=== PATIENT | female | born 1955 | race Caucasian/White ===

== ENCOUNTER 2017-10-06 23:19 | Observation (INO) | payer BC ==
[2017-10-06] MEDS ORDERED: NA CHLORIDE 0.9% 1,000 ML ONE (23:39)
[2017-10-06 23:56] LABS: Protime INR 0.95
[2017-10-07 00:08] LABS: ALT/SGPT 38 U/L (12-78); AST/SGOT 26 U/L (15-37); Albumin 3.3 g/dL (3.4-5.0); Alkaline Phosphatase 87 U/L (45-117); BUN Blood Urea Nitrogen 12 mg/dL (7-18); Bicarbonate 27 mmol/L (21-32); Bilirubin Direct < 0.1 mg/dL (0-0.2); Bilirubin Total 0.4 mg/dL (0.2-1.0); Glucose Level 115 mg/dL (74-106); Magnesium 2.4 mg/dL (1.8-2.4); Potassium 3.4 mmol/L (3.5-5.1); Protein, Total 6.7 g/dL (6.4-8.2); Sodium Level 142 mmol/L (136-145)
[2017-10-07 00:11] LABS: Absolute Lymphocytes (CBC) 3.4 K/uL (0.7-4.9); Absolute Monocytes 0.5 K/uL (0.1-1.3); Absolute Neutrophil 3.9 K/uL (1.8-8.0); Basophils % 0.8 % (0-1.3); Hematocrit 42.8 % (36.0-45.0); Lymphocytes % 42.4 % (15.3-44.8); MCH 30.2 pg (27.0-35.0); MCV 89.8 fL (80-100); MPV 7.3 fL (7.6-11.3); Monocytes % 6.2 % (3.3-12.3); RBC Red Blood Cell Count 4.76 M/uL (3.86-4.86)
[2017-10-07] MEDS ORDERED: ONDANSETRON 4 MG/2 ML VIAL IV PRN (01:59)
[2017-10-07] MEDS ORDERED: ACETAMINOPHEN 500 MG TAB PO PRN (01:59)
--- NOTE | 2017-10-07 01:59 | EDPHYS ---
Physician Documentation [facility] Name: Carmen Mandel Age: 62 yrs Sex: Female : 1955 Arrival Date: 10/06/2017 Time: 23:21 Bed 3 Private MD: ED Physician Todd Stubbs HPI: 10/07 01:53 This 62 yrs old Female presents to ER via EMS with complaints of syncope,near gs syncope. 01:53 The patient has experienced syncope, collapsed. Onset: The symptoms/episode gs began/occurred acutely, just prior to arrival. Duration: This was a single episode. Context: occurred at home, occurred while the patient was went to , the walked outside to smoke got light headed briefly passed out. Context: occurred while the patient was. Associated injury: The patient did not suffer any apparent associated injury. Associated signs and symptoms: Pertinent negatives: chest pain. Current symptoms: Currently, the patient is not experiencing any symptoms. The patient has experienced a previous episode. Historical: - Allergies: 10/06 23:27 Neurontin; lp1 - Home Meds: 23:27 mirtazapine 30 mg Oral tab nightly [Active]; Pravachol 40 mg Oral tab nightly [Active]; lp1 [place] Thyroid 90 mg Oral tab daily [Active]; citalopram 40 mg tab 1 tab once daily [Active]; - PMHx: 23:27 Hyperlipidemia; Depression; lp1 - PSHx: 23:27 ; Appendectomy; Back surgery; lp1 - Immunization history:: Adult Immunizations up to date. - Social history:: Smoking status: Patient uses tobacco products, smokes one pack cigarettes per day. - Ebola Screening: : No symptoms or risks identified at this time. ROS: 10/07 01:53 All other systems are negative. gs Exam: 01:53 Head/Face: Normocephalic, atraumatic. Eyes: Pupils equal round and reactive to light, gs extra-ocular motions intact. Lids and lashes normal. Conjunctiva and sclera are non-icteric and not injected. Cornea within normal limits. Periorbital areas with no swelling, redness, or edema. 01:53 ENT: Nares patent. No nasal discharge, no septal abnormalities noted. Tympanic membranes are normal and external auditory canals are clear. Oropharynx with no redness, swelling, or masses, exudates, or evidence of obstruction, uvula midline. Mucous membranes moist. Neck: Trachea midline, no thyromegaly or masses palpated, and no cervical lymphadenopathy. Supple, full range of motion without nuchal rigidity, or vertebral point tenderness. No Meningismus. Chest/axilla: Normal chest wall appearance and motion. Nontender with no deformity. No lesions are appreciated. Cardiovascular: Regular rate and rhythm with a normal S1 and S2. No gallops, murmurs, or rubs. Normal PMI, no JVD. No pulse deficits. Respiratory: Lungs have equal breath sounds bilaterally, clear to auscultation and percussion. No rales, rhonchi or wheezes noted. No increased work of breathing, no retractions or nasal flaring. Abdomen/GI: Soft, non-tender, with normal bowel sounds. No distension or tympany. No guarding or rebound. No evidence of tenderness throughout. Back: No spinal tenderness. No costovertebral tenderness. Full range of motion. Skin: Warm, dry with normal turgor. Normal color with no rashes, no lesions, and no evidence of cellulitis. MS/ Extremity: Pulses equal, no cyanosis. Neurovascular intact. Full, normal range of motion. Neuro: Awake and alert, GCS 15, oriented to person, place, time, and situation. Cranial nerves II-XII grossly intact. Motor strength 5/5 in all extremities. Sensory grossly intact. Cerebellar exam normal. Normal gait. 01:53 ECG was reviewed by the Attending Physician. Vital Signs: 10/06 23:23 BP 105 / 62; Pulse 66; Resp 16; Temp 97.4; Pulse Ox 97% on R/A; Weight 62.14 kg; Height lp1 5 ft. 5 in. (165.10 cm); 23:41 BP 100 / 57; Pulse 65; Resp 18; Pulse Ox 100% ; Pain 0/10; mg2 10/07 00:27 BP 115 / 67; Pulse 67; Resp 18; Pulse Ox 98% on R/A; mg2 01:15 BP 103 / 67; Pulse 66; Resp 18; Pulse Ox 99% on R/A; Pain 0/10; mg2 10/06 23:23 Body Mass Index 22.80 (62.14 kg, 165.10 cm) lp1 MDM: 10/06 23:31 Patient medically screened. gs 06/22 01:53 Differential Diagnosis: cardiac arrhythmia, idiopathic syncope, vasovagal episode. Differential Diagnosis: pseudo seizure. Data reviewed: vital signs, nurses notes. Response to treatment: the patient's symptoms have markedly improved after treatment. 10/06 23:32 Order name: Basic Metabolic Panel; Complete Time: 01:24 10/06 23:32 Order name: CBC with Diff; Complete Time: 01:24 10/06 23:32 Order name: LFT's; Complete Time: 01:24 10/06 23:32 Order name: Magnesium; Complete Time: 01:24 10/06 23:32 Order name: PT-INR; Complete Time: 01:24 10/06 23:32 Order name: Troponin (emerg Dept Use Only); Complete Time: 01:24 10/07 01:30 Order name: Urine Microscopic Only mg2 10/07 01:32 Order name: Urine Dipstick--Ancillary (enter results) rg2 10/07 02:02 Order name: Comprehensive Metabolic Panel [facility] 10/07 02:02 Order name: Comprehensive Metabolic Panel [facility] 10/07 02:02 Order name: Troponin I [facility] 10/07 02:03 Order name: Troponin I [facility] 10/07 02:03 Order name: CBC with Automated Diff [facility] 10/07 02:03 Order name: CBC with Automated Diff [facility] 10/06 23:32 Order name: XRAY Chest (1 view) 10/06 23:32 Order name: EKG; Complete Time: 23:33 10/06 23:32 Order name: Cardiac monitoring; Complete Time: 23:35 10/06 23:32 Order name: EKG - Nurse/Tech; Complete Time: 23:35 10/06 23:32 Order name: IV Saline Lock; Complete Time: 23:35 10/06 23:32 Order name: Labs collected and sent; Complete Time: 23:35 10/06 23:32 Order name: O2 Per Protocol; Complete Time: 23:35 10/06 23:32 Order name: O2 Sat Monitoring; Complete Time: 23:35 10/06 23:32 Order name: Urine Dipstick-Ancillary (obtain specimen); Complete Time: 01:30 10/07 02:02 Order name: CONS Pharmacy Consult [facility] 10/07 02:03 Order name: NPO [facility] 10/07 02:03 Order name: Echo with Doppler [facility] 10/07 02:03 Order name: EKG Electrocardiogram [facility] 10/07 02:03 Order name: EKG Electrocardiogram [facility] 10/07 02:03 Order name: Carotid Artery Bilateral EDMS EC:53 Rate is 63 beats/min. Rhythm is regular. MN interval is normal. QRS interval is normal. gs T waves are Inverted in leads V1, V2. No ST changes noted. Clinical impression: NSR w/ Non-specific ST/T Changes and Abnormal EKG without significant change. Interpreted by me. Administered Medications: 10/06 23:39 Drug: NS 0.9% 1000 ml Route: IV; Rate: 1 bolus; Site: right hand; mg2 10/07 01:30 Follow up: Response: No adverse reaction; IV Status: Completed infusion mg2 Disposition: 10/07/17 01:58 Hospitalization ordered by Ronald Zuñiga for Observation. Preliminary diagnosis is Syncope and collapse. - Bed requested for Telemetry/MedSurg (observation). - Status is Observation. mg2 - Condition is Stable. - Problem is new. - Symptoms have improved. UTI on Admission? No Signatures: Dispatcher [employer] EDLA Meg Julien RN RN Delia Zheng RN RN lp1 Todd Stubbs MD MD Kwame Howell RN RN mg2 Corrections: (The following items were deleted from the chart) 02:07 01:58 Hospitalization Ordered by Ronald Zuñiga MD for Observation. Preliminary mw diagnosis is Syncope and collapse. Bed requested for Telemetry/MedSurg (observation). Status is Observation. Condition is Stable. Problem is new. Symptoms have improved. UTI on Admission? No. gs 02:46 02:07 10/07/2017 01:58 Hospitalization Ordered by Ronald Zuñiga MD for Observation. mg2 Preliminary diagnosis is Syncope and collapse. Bed requested for Telemetry/MedSurg (observation). Status is Observation. Condition is Stable. Problem is new. Symptoms have improved. UTI on Admission? No. mw
--- NOTE | 2017-10-07 01:59 | ER ---
Nurse's Notes [facility] Name: Carmen Mandel Age: 62 yrs Sex: Female : 1955 Arrival Date: 10/06/2017 Time: 23:21 Bed 3 Private MD: Diagnosis: Syncope and collapse Presentation: 10/06 23:21 Presenting complaint: EMS states: Patient was sitting down and began to feel dizzy, lp1 light headed, states she could not stand up; EMS on scene states BP of 60/40, put in Trendelenburg position with some improvement; On arrival to ED, patient states some relief but continues to feel dizzy. Transition of care: patient was not received from another setting of care. Onset of symptoms was October 06, 2017 at 22:30. Risk Assessment: Do you want to hurt yourself or someone else? Patient reports no desire to harm self or others. Initial Sepsis Screen: Does the patient meet any 2 criteria? No. Patient's initial sepsis screen is negative. Does the patient have a suspected source of infection? No. Patient's initial sepsis screen is negative. Care prior to arrival: Glucose check: 108. 23:21 Method Of Arrival: EMS: [facility] lp1 23:21 Acuity: CHET 2 lp1 Historical: - Allergies: 23:27 Neurontin; lp1 - Home Meds: 23:27 mirtazapine 30 mg Oral tab nightly [Active]; Pravachol 40 mg Oral tab nightly [Active]; lp1 [place] Thyroid 90 mg Oral tab daily [Active]; citalopram 40 mg tab 1 tab once daily [Active]; - PMHx: 23:27 Hyperlipidemia; Depression; lp1 - PSHx: 23:27 ; Appendectomy; Back surgery; lp1 - Immunization history:: Adult Immunizations up to date. - Social history:: Smoking status: Patient uses tobacco products, smokes one pack cigarettes per day. - Ebola Screening: : No symptoms or risks identified at this time. Screenin:24 Abuse screen: Denies threats or abuse. Denies injuries from another. Nutritional lp1 screening: No deficits noted. Tuberculosis screening: No symptoms or risk factors identified. 10/07 02:24 Fall Risk Fall in past 12 months (25 points). IV access (20 points). Gait- Weak (10 mg2 pts.). Assessment: 10/06 23:39 General: Appears in no apparent distress. comfortable, Behavior is calm, cooperative. mg2 Pain: Denies pain. Neuro: Level of Consciousness is awake, alert, obeys commands, Oriented to person, place, time, situation, Reports dizziness, since this evening and she almost passed out in the toilet weakness in generalized. Cardiovascular: Capillary refill < 3 seconds Patient's skin is warm and dry. Rhythm is sinus rhythm. Respiratory: Airway is patent Respiratory effort is even, unlabored, Respiratory pattern is regular, symmetrical. GI: No signs and/or symptoms were reported involving the gastrointestinal system. : No signs and/or symptoms were reported regarding the genitourinary system. EENT: No signs and/or symptoms were reported regarding the EENT system. Derm: Skin is intact, Skin is pink, warm \T\ dry. normal. Musculoskeletal: Circulation, motion, and sensation intact. 10/07 01:22 Reassessment: Patient appears in no apparent distress at this time. Patient and/or mg2 family updated on plan of care and expected duration. Pain level reassessed. Patient is alert, oriented x 3, equal unlabored respirations, skin warm/dry/pink. 02:23 Reassessment: BRIDGETT Velazquez is still with the patient right now. she will call to [facility] [place] the report. Vital Signs: 10/06 23:23 BP 105 / 62; Pulse 66; Resp 16; Temp 97.4; Pulse Ox 97% on R/A; Weight 62.14 kg; Height lp1 5 ft. 5 in. (165.10 cm); 23:41 BP 100 / 57; Pulse 65; Resp 18; Pulse Ox 100% ; Pain 0/10; mg2 10/07 00:27 BP 115 / 67; Pulse 67; Resp 18; Pulse Ox 98% on R/A; mg2 01:15 BP 103 / 67; Pulse 66; Resp 18; Pulse Ox 99% on R/A; Pain 0/10; mg2 10/06 23:23 Body Mass Index 22.80 (62.14 kg, 165.10 cm) lp1 ED Course: 10/06 23:21 Patient arrived in ED. lp1 23:21 Todd Stubbs MD is Attending Physician. 23:23 Triage completed. lp1 23:24 Initial lab(s) drawn, by me, EKG done, by ED staff, reviewed by Todd Stubbs MD. aa1 Inserted saline lock: 22 gauge in right hand, using aseptic technique. Blood collected. 23:27 Patient has correct armband on for positive identification. Placed in gown. Bed in low lp1 position. Side rails up X2. freelance interpreter/translator on. Pulse ox on. NIBP on. 23:27 Arm band placed on left wrist. lp1 23:35 Kwame Howell RN is Primary Nurse. mg2 23:44 XRAY Chest (1 view) In Process Unspecified. EDMS 10/07 01:58 Ronald Zuñiga MD is Hospitalizing Provider. gs 02:24 No provider procedures requiring assistance completed. Patient admitted, IV remains in mg2 place. Administered Medications: 10/06 23:39 Drug: NS 0.9% 1000 ml Route: IV; Rate: 1 bolus; Site: right hand; mg2 10/07 01:30 Follow up: Response: No adverse reaction; IV Status: Completed infusion mg2 Outcome: 01:58 Decision to Hospitalize by Provider. gs 02:34 Admitted to Tele accompanied by tech, via wheelchair, room 408, with chart, Report mg2 called to BRIDGETT Velazquez 02:34 Condition: stable 02:34 Instructed on the need for admit, Demonstrated understanding of instructions. 02:46 Patient left the ED. mg2 Signatures: Dispatcher [employer] EDMS Jessica Escobedo RN RN aa1 Delia Zheng RN RN lp1 Todd Stubbs MD MD Kwame Howell RN RN mg2
[2017-10-07 02:03] LABS: Urine Blood TRACE (NEG); Urine Glucose NEGATIVE (NEG); Urine Protein NEGATIVE (NEG); Urine pH 6.5 (5.0-7.0)
[2017-10-07 02:27] LABS: Urine Bacteria <20 /HPF (<20); Urine Culture Reflex Order NOT NEEDED
[2017-10-07] MEDS: NA CHLORIDE 0.9% 1,000 ML IV SCH ×2 (03:16→12:00)
--- NOTE | 2017-10-07 06:12 | P.HP ---
Certification for Inpatient Patient admitted to: Observation With expected LOS: <2 Midnights Patient will require the following post-hospital care: None Practitioner: I am a practitioner with admitting privileges, knowledge of patient current condition, hospital course, and medical plan of care. Services: Services provided to patient in accordance with Admission requirements found in Title 42 Section 412.3 of the Code of Federal Regulations Patient History Date of Service: 10/07/17 Reason for admission: Near syncope History of Present Illness: Patient is a 62-year-old female came to the hospital with a near syncopal event. Patient states that she started having ringing in her ears and was not able to maintain her balance. She was not having any vertigo. She was about to fall but she was able to lay down. She is to have these events many years ago but they subsided. They never diagnosed the etiology of her near syncopal events. She has headaches and states that she notices a ringing in her ears. Everything goes dark and if she does not lay down she will collapse. In the emergency room she had a initial labs which did not reveal any significant abnormalities. She will be admitted to the hospital for further workup for her syncopal event. Allergies gabapentin [From Neurontin] Allergy (Mild, Verified 10/07/17 02:19) Rash Home Medications: Citalopram Hydrobromide [Citalopram HBr] 40 mg PO DAILY 10/07/17 Mirtazapine [Remeron] 30 mg PO BEDTIME 10/07/17 Pravastatin Sodium 40 mg PO BEDTIME 10/07/17 Thyroid,Pork [[place] Thyroid] 90 mg PO DAILY 10/07/17 - Past Medical/Surgical History Has patient received pneumonia vaccine in the past: No Diabetic: No -: Hyperlipedemia -: Depression -: Appendectomy -: C Section -: Back Surgery x 3 -: Breast Implants x 2 - Family History Father Medical History: Diabetes Mother Medical History: Heart disease Sister Medical History: Heart disease Brother Medical History: Heart disease - Social History Smoking Status: Current every day smoker Alcohol use: No CD- Drugs: No Place of Residence: Home Review of Systems 10-point ROS is otherwise unremarkable Physical Examination - Vital Signs Temperature: 97.6 F Blood Pressure: 113/62 Pulse: 65 Respirations: 14 Pulse Ox (%): 94 - Physical Exam General: Alert, In no apparent distress, Oriented x3 HEENT: Atraumatic, PERRLA, Mucous membr. moist/pink, EOMI, Sclerae nonicteric Neck: Supple, 2+ carotid pulse no bruit, No LAD, Without JVD or thyroid abnormality Respiratory: Clear to auscultation bilaterally, Normal air movement Cardiovascular: Regular rate/rhythm, Normal S1 S2, No murmurs Gastrointestinal: Normal bowel sounds, Soft and benign, Non-distended, No tenderness Musculoskeletal: No clubbing, No swelling, No tenderness Integumentary: No rashes Neurological: Normal gait, Normal speech, Normal strength at 5/5 x4 extr, Normal tone, Sensation intact, Cranial nerves 3-12 intact, Normal affect Lymphatics: No axilla or inguinal lymphadenopathy - Studies Laboratory Data (last 24 hrs) 10/06/17 23:22: PT 11.2, INR 0.95 10/06/17 23:22: WBC 7.9, Hgb 14.4, Hct 42.8, Plt Count 307 10/06/17 23:22: Sodium 142, Potassium 3.4 L, BUN 12, Creatinine 0.90, Glucose 115 H, Magnesium 2.4, Total Bilirubin 0.4, AST 26, ALT 38, Alkaline Phosphatase 87 Assessment & Plan - Problems (Diagnosis) (1) Near syncope Current Visit: Yes Status: Acute (2) Tinnitus Current Visit: Yes Status: Acute (3) Persistent headaches Current Visit: Yes Status: Acute (4) Previous back surgery Current Visit: Yes Status: Acute - Plan Plan: 1. Gentle hydration 2. Monitor on telemetry 3. Syncope workup with echocardiogram, carotid Doppler, and because of all the neurologic symptoms will also get an MRI of the brain. No need for any consultation at this time and if her workup is negative she should be stable for discharge home. There is any abnormalities or arrhythmias then we may need to Consult appropriate physicians. At this time will work her up and arrange for outpatient follow-up with her primary care provider if her workup is negative. - Advance Directives Does patient have a Living Will: No Does patient have a Durable POA for Healthcare: No - Code Status/Comfort Care Code Status Assessed: Yes Code Status: Full Code Critical Care: No Time Spent Managing PTS Care (In Minutes): 50
[2017-10-07 08:14] LABS: Thyroid Stimulating Hormone 0.01 uIU/mL (0.36-3.74)
--- NOTE | 2017-10-07 08:56 | RAD REPORT ---
EXAM DESCRIPTION: Kirsten Single View10/06/2017 11:46 pm CLINICAL HISTORY: Shortness of breath COMPARISON: 2013 FINDINGS: The lungs appear clear of acute infiltrate. The heart is normal size IMPRESSION: No acute abnormalities displayed
[2017-10-07] MEDS ORDERED: HOME MED 1 EA UNK (Thyroid,Pork [Armour Thyroid] 90 MG) PO SCH (09:00)
[2017-10-07] MEDS ORDERED: CITALOPRAM 10 MG TABLET PO SCH (09:00)
[2017-10-07] MEDS ORDERED: NICOTINE 21 MG/PAT TD SCH (09:00)
--- NOTE | 2017-10-07 10:43 | RAD REPORT ---
EXAM DESCRIPTION: MRI - Stroke Protocol - 10/07/2017 10:28 am CLINICAL HISTORY: near syncope. CVA.Headache. COMPARISON: Carotid Artery Bilateral dated 10/07/2017 TECHNIQUE: MRI of brain with diffusion-weighted imaging with contrast 3D [id number] non contrast MR angiography of the [place]. 2D [id number] post contrast MR angiography of the neck vessels. Approximately 20 cc of Magne[place] contrast was administered during the study. FINDINGS: No intracranial hemorrhage, hydrocephalus or extra-axial fluid collection is seen. Fall a few punctate T2/FLAIR hyperintensities in the periventricular region are nonspecific.No areas of brai n edema or midline shift. No intracranial mass lesion. Diffusion-weighted imaging is negative for acute CVA. The midline structures are normally formed. Post-contrast imaging through the brain shows no abnormal enhancement to suggest tumor or infection. Moderate fluid in the right mastoid air cell noted. MR angiography of the [place] shows no aneurysm, flow-limiting stenosis or vascular malforma tion. MR angiography of the neck vessels shows mild narrowing of the left carotid bulb estimated at less th an 50%. Antegrade flow is seen in both vertebral arteries. IMPRESSION: Negative for acute CVA or other acute intracranial process. Moderate right mastoid fluid may indicate mastoiditis.
--- NOTE | 2017-10-07 10:57 | RAD REPORT ---
EXAM DESCRIPTION: VASCarotid Artery Bilateral10/07/2017 8:59 am CLINICAL HISTORY: Syncope COMPARISON: None FINDINGS: The velocity of the right internal carotid artery equals 120 cm/sec. The right ICA/CCA rat io 1.5 The velocity of the left internal carotid artery equals 120 cm/sec. The left ICA/CCA ratio 1.4 Plaque is not visualized within the carotid arteries. The vertebral arteries demonstrate antegrade flow IMPRESSION: Unremarkable exam
--- NOTE | 2017-10-07 11:14 | EKG ---
Test Date: 2017-10-06 Test Time: 23:23:57 X Ray Physician: MEASUREMENT RESULTS: Intervals: Rate: 63 CA: 180 QRSD: 96 QT: 436 QTc: 446 [place]: P: 67 CA: 180 QRS: 14 T: 81 INTERPRETIVE STATEMENTS: Normal sinus rhythm Incomplete right bundle branch block Nonspecific T wave abnormality Abnormal ECG Compared to ECG 01/16/2014 11:38:03 Incomplete right bundle-branch block now present T-wave abnormality now present Electronically Signed On 10-07-17 11:13:38 CDT by Ty Hennessy
--- NOTE | 2017-10-07 11:53 | P.DS ---
Admission Date: 10/07/17 Discharge Date: 10/07/17 Primary Care Provider: Ray Montgomery NP Disposition: ROUTINE DISCHARGE Discharge Condition: GOOD Reason for Admission: Near syncope Procedures: MRI: FINDINGS: No intracranial hemorrhage, hydrocephalus or extra-axial fluid collection is seen. Fall a few punctate T2/FLAIR hyperintensities in the periventricular region are nonspecific.No areas of brain edema or midline shift. No intracranial mass lesion. Diffusion-weighted imaging is negative for acute CVA. The midline structures are normally formed. Post-contrast imaging through the brain shows no abnormal enhancement to suggest tumor or infection. Moderate fluid in the right mastoid air cell noted. MR angiography of the [place] shows no aneurysm, flow-limiting stenosis or vascular malformation. MR angiography of the neck vessels shows mild narrowing of the left carotid bulb estimated at less than 50%. Antegrade flow is seen in both vertebral arteries. IMPRESSION: Negative for acute CVA or other acute intracranial process. Carotid Doppler: Negative for stenosis. - Problems (1) Mastoiditis Current Visit: Yes Status: Acute Qualifiers: Laterality: right Qualified Code(s): H70.91 - Unspecified mastoiditis, right ear (2) Hypothyroidism Current Visit: Yes Status: Chronic Qualifiers: Hypothyroidism type: unspecified Qualified Code(s): E03.9 - Hypothyroidism , unspecified (3) Near syncope Onset Date: 10/07/17 Current Visit: Yes Status: Acute (4) Persistent headaches Onset Date: 10/07/17 Current Visit: Yes Status: Chronic (5) Tinnitus Onset Date: 10/07/17 Current Visit: Yes Status: Chronic (6) Hypokalemia Current Visit: Yes Status: Acute (7) Hyperlipidemia Current Visit: Yes Status: Chronic Qualifiers: Hyperlipidemia type: unspecified Qualified Code(s): E78.5 - Hyperlipidemia , unspecified (8) Depression Current Visit: Yes Status: Chronic Qualifiers: Depression Type: unspecified Qualified Code(s): F32.9 - Major depressive disorder, single episode, unspecified (9) Seasonal allergies Current Visit: Yes Status: Chronic (10) Tobacco abuse Current Visit: Yes Status: Chronic Brief History of Present Illness: 62-year-old female presented emergency room with dizziness and near syncopal episode. Patient reports chronic headaches. Patient had some dizziness to the right side. Patient came to the ER for further evaluation. Initial CT scan unremarkable. The patient was admitted for further evaluation Hospital Course: The patient did well during the course of her stay. Dizziness resolved. Patient had no further near syncopal episode. MRI showed no acute stroke. Right mastoiditis was noted. Carotid Doppler was negative. At discharge patient has been started on Augmentin 875 mg 1 pill twice daily for 7 days. Flonase 1 spray per nostril twice daily also has been added. If her symptoms persist recommendation is for the patient follow up with ENT as an outpatient to further evaluate and monitor. Patient has tobacco abuse. Tobacco cessation recommended. Patient has hyperlipidemia. Patient may continue with pravastatin 40 mg 1 pill once daily. Patient has depression. She will continue with her medications including Celexa 40 mg daily and Remeron 20 mg at night. Patient has hypothyroidism. Patient takes [place] thyroid 90 mg daily. Recommendation is for the patient to follow up with her PCP to further evaluate. Medication may need to be decreased. Repeat lab done today including tsh, free T4, free T3, total T4 and T3. Lab will need to be followed up by her PCP. Patient may require endocrinology evaluation as an outpatient to further address and manage. Vital Signs/Physical Exam: Temp Pulse Resp BP Pulse Ox 96.9 F 67 17 100/42 L 94 10/07/17 08:00 10/07/17 08:00 10/07/17 08:00 10/07/17 08:00 10/07/17 08:00 General: Alert, In no apparent distress, Oriented x3, Cooperative HEENT: Atraumatic, Other (Nasal congestion noted.) Neck: Supple Respiratory: Clear to auscultation bilaterally, Normal air movement Cardiovascular: Normal pulses, Regular rate/rhythm Gastrointestinal: Normal bowel sounds, Soft and benign, Non-distended, No tenderness, No masses, No rebound, No guarding Musculoskeletal: No erythema, No tenderness, No warmth Integumentary: No tenderness/swelling, No erythema, No warmth, No cyanosis Neurological: Normal speech, Normal strength at 5/5 x4 extr, Normal tone, Normal affect Laboratory Data at Discharge: WBC 7.9 K/uL (4.3-10.9) 10/06/17 23:22 Hgb 14.4 g/dL (12.0-15.0) 10/06/17 23:22 Hct 42.8 % (36.0-45.0) 10/06/17 23:22 Plt Count 307 K/uL (152-406) 10/06/17 23:22 PT 11.2 SECONDS (9.5-12.5) 10/06/17 23:22 INR 0.95 10/06/17 23:22 Sodium 142 mmol/L (136-145) 10/06/17 23:22 Potassium 3.4 mmol/L (3.5-5.1) L 10/06/17 23:22 BUN 12 mg/dL (7-18) 10/06/17 23:22 Creatinine 0.90 mg/dL (0.55-1.3) 10/06/17 23:22 Glucose 115 mg/dL (74-106) H 10/06/17 23:22 Magnesium 2.4 mg/dL (1.8-2.4) 10/06/17 23:22 Total Bilirubin 0.4 mg/dL (0.2-1.0) 10/06/17 23:22 AST 26 U/L (15-37) 10/06/17 23:22 ALT 38 U/L (12-78) 10/06/17 23:22 Alkaline Phosphatase 87 U/L (45-117) 10/06/17 23:22 Troponin I < 0.02 ng/mL (0.0-0.045) 10/07/17 04:10 Triglycerides 73 mg/dL (<150) 10/07/17 04:10 Cholesterol 209 mg/dL (<200) H 10/07/17 04:10 HDL Cholesterol 49 mg/dL (40-60) 10/07/17 04:10 Cholesterol/HDL Ratio 4.27 10/07/17 04:10 Home Medications: Amox/Clavulanate [Augmentin 875-125 Tab] 1 each PO BID #14 tab 10/07/17 Citalopram Hydrobromide [Citalopram HBr] 40 mg PO DAILY 10/07/17 Fluticasone [Flonase 50mcg Nasal [place]] 1 sprays NS BID #1 btl 10/07/17 Mirtazapine [Remeron] 30 mg PO BEDTIME 10/07/17 Pravastatin Sodium 40 mg PO BEDTIME 10/07/17 Thyroid,Pork [[place] Thyroid] 90 mg PO DAILY 10/07/17 New Medications: Amox/Clavulanate [Augmentin 875-125 Tab] 1 each PO BID #14 tab Fluticasone [Flonase 50mcg Nasal [place]] 1 sprays NS BID #1 btl Patient Discharge Instructions: 1. Follow up with her PCP in 1 week to follow up this hospitalization. 2. Patient presented with dizziness. MRI showed no acute stroke. Right mastoiditis was noted. Carotid Doppler was negative. At discharge patient has been started on Augmentin 875 mg 1 pill twice daily for 7 days. Flonase 1 spray per nostril twice daily also has been added. If her symptoms persist recommendation is for the patient follow up with ENT as an outpatient to further evaluate and monitor. 3. Patient has tobacco abuse. Tobacco cessation recommended. 4. Patient has hyperlipidemia. Patient may continue with pravastatin 40 mg 1 pill once daily. 5. Patient has depression. She will continue with her medications including Celexa 40 mg daily and Remeron 20 mg at night. 6. Patient has hypothyroidism. Patient takes [place] thyroid 90 mg daily. Recommendation is for the patient to follow up with her PCP to further evaluate. Medication may need to be decreased. Repeat lab done today, will to be followed up by her PCP. Patient may require endocrinology evaluation as an outpatient to further address and manage. Diet: AHA Activity: Fall precautions Time spent managing pt's care (in minutes): 55
--- NOTE | 2017-10-07 12:28 | ECHO ---
HEIGHT: 5 ft 5 in WEIGHT: 142 lb 3.2 oz DATE OF STUDY: 10/07/[address]: Ronald Zuñiga MD 2-DIMENSIONAL: YES M.MODE: YES DOPPLER: YES COLOR FLOW: YES TDS: YES PORTABLE: NO DEFINITY: NO BUBBLE STUDY: NO DIAGNOSIS: SYNCOPE CARDIAC HISTORY: CATHERIZATION: NO SURGERY: NO PROSTHETIC VALVE: NO PACEMAKER: NO MEASUREMENTS (cm) DIASTOLIC (NORMALS) SYSTOLIC (NORMALS) IVSd 0.9 (0.6-1.2) LA Diam 2.7 (1.9-4.0) LVEF 64% LVIDd 3.2 (3.5-5.7) LVIDs 2.1 (2.0-3.5) %FS 34% LVPWd 0.9 (0.6-1.2) Ao Diam 2.8 (2.0-3.7) 2 DIMENSIONAL ASSESSMENT: RIGHT ATRIUM: NORMAL LEFT ATRIUM: NORMAL RIGHT VENTRICLE: NORMAL LEFT VENTRICLE: NORMAL TRICUSPID VALVE: NORMAL MITRAL VALVE: NORMAL PULMONIC VALVE: NORMAL AORTIC VALVE: NORMAL PERICARDIAL EFFUSION: NONE AORTIC ROOT: NORMAL LEFT VENTRICULAR WALL MOTION: NORMAL. DOPPLER/COLOR FLOW: MILD TRICUSPID REGURGITATION. COMMENTS: TECHNICALLY DIFFICULT STUDY - NORMAL RIGHT VENTRICULAR SYSTOLIC PRESSURE. NORMAL 2D ECHO. MILD TRICUSPID REGURGITATION. TECHNOLOGIST: FATUMA COX
[2017-10-07] MEDS ORDERED: ENOXAPARIN 40 MG/0.4 ML SQ SCH (17:00)
[2017-10-07] MEDS ORDERED: MIRTAZAPINE 15 MG TAB PO SCH (21:00)
[2017-10-07] MEDS ORDERED: ATORVASTATIN 10 MG TAB PO SCH (21:00)
[2017-10-08] MEDS ORDERED: THYROID 30 MG TAB PO SCH (06:00)
== END 2017-10-07 13:10 | disposition home or self-care (01) ==
LOC: ER 23:19 → ERHOLD 10-07 02:00 → 4TH 10-07 02:33
PROVIDERS: ADMIT Hospitalist; ATTEND Hospitalist
DX: H70.001 Acute mastoiditis without complications, right ear (principal); E03.9 Hypothyroidism, unspecified; H93.19 Tinnitus, unspecified ear; E87.6 Hypokalemia; E78.5 Hyperlipidemia, unspecified; F32.9 Major depressive disorder, single episode, unspecified; J30.2 Other seasonal allergic rhinitis; F17.210 Nicotine dependence, cigarettes, uncomplicated
CPT/HCPCS: 36415; 70544; 70549; 70553; 71045; 80048; 80061; 80076; 81003; 81015; 83735; 84439; 84443; 84484; 85025; 85610; 93005; 93306; 93880; 96360; 96361; 99285; A9577; G0378; J7030

== ENCOUNTER 2017-10-19 11:38 | Emergency (ER) | payer BC ==
[2017-10-19] MEDS ORDERED: KETOROLAC 30 MG/ML INJ ONE (12:03)
--- NOTE | 2017-10-19 12:37 | EDPHYS ---
Physician Documentation [facility] Name: Carmen Mandel Age: 62 yrs Sex: Female : 1955 Arrival Date: 10/19/2017 Time: 11:41 Bed 17 Private MD: ED Physician Merritt Kulkarni HPI: 10/19 12:01 This 62 yrs old Female presents to ER via EMS with complaints of Low Back snw Pain. 12:01 The patient presents with pain that is acute. The symptoms are located in the low back. snw Location: right leg and right low back. The problem was sustained when bending over. Onset: The symptoms/episode began/occurred suddenly, and became persistent. Associated signs and symptoms: The patient has no apparent associated signs or symptoms. Severity of symptoms: At their worst the symptoms were moderate. The patient has not experienced similar symptoms in the past. The patient has not recently seen a physician. took Mother and 's medications (pt does not know name of meds). Historical: - Allergies: 11:54 Neurontin; aj1 - Home Meds: 11:54 [place] Thyroid 90 mg Oral tab daily [Active]; citalopram 40 mg tab 1 tab once daily aj1 [Active]; mirtazapine 30 mg Oral tab nightly [Active]; Pravachol 40 mg Oral tab nightly [Active]; - PMHx: 11:54 Depression; Hyperlipidemia; aj1 - Immunization history:: Flu vaccine status is unknown. - Social history:: Smoking status: Patient uses tobacco products, smokes one pack cigarettes per day. - Ebola Screening: : Patient denies travel to an Ebola-affected area in the 21 days before illness onset. ROS: 11:59 Constitutional: Negative for fever, chills, and weight loss, Eyes: Negative for injury, snw pain, redness, and discharge, ENT: Negative for injury, pain, and discharge, Neck: Negative for injury, pain, and swelling, Cardiovascular: Negative for chest pain, palpitations, and edema, Respiratory: Negative for shortness of breath, cough, wheezing, and pleuritic chest pain, Abdomen/GI: Negative for abdominal pain, nausea, vomiting, diarrhea, and constipation, : Negative for injury, bleeding, discharge, and swelling, MS/Extremity: Negative for injury and deformity, Skin: Negative for injury, rash, and discoloration, Neuro: Negative for headache, weakness, numbness, tingling, and seizure. 11:59 Back: Positive for decreased range of motion, pain at rest, pain with movement, radiated pain, to right anterior thigh. Exam: 11:58 Constitutional: This is a well developed, well nourished patient who is awake, alert, snw and in no acute distress. Head/Face: Normocephalic, atraumatic. Eyes: Pupils equal round and reactive to light, extra-ocular motions intact. Lids and lashes normal. Conjunctiva and sclera are non-icteric and not injected. Cornea within normal limits. Periorbital areas with no swelling, redness, or edema. ENT: Nares patent. No nasal discharge, no septal abnormalities noted. Tympanic membranes are normal and external auditory canals are clear. Oropharynx with no redness, swelling, or masses, exudates, or evidence of obstruction, uvula midline. Mucous membranes moist. Neck: Trachea midline, no thyromegaly or masses palpated, and no cervical lymphadenopathy. Supple, full range of motion without nuchal rigidity, or vertebral point tenderness. No Meningismus. Chest/axilla: Normal chest wall appearance and motion. Nontender with no deformity. No lesions are appreciated. Cardiovascular: Regular rate and rhythm with a normal S1 and S2. No gallops, murmurs, or rubs. Normal PMI, no JVD. No pulse deficits. Respiratory: Lungs have equal breath sounds bilaterally, clear to auscultation and percussion. No rales, rhonchi or wheezes noted. No increased work of breathing, no retractions or nasal flaring. Abdomen/GI: Soft, non-tender, with normal bowel sounds. No distension or tympany. No guarding or rebound. No evidence of tenderness throughout. Skin: Warm, dry with normal turgor. Normal color with no rashes, no lesions, and no evidence of cellulitis. MS/ Extremity: Pulses equal, no cyanosis. Neurovascular intact. Full, normal range of motion. Neuro: Awake and alert, GCS 15, oriented to person, place, time, and situation. Cranial nerves II-XII grossly intact. Motor strength 5/5 in all extremities. Sensory grossly intact. Cerebellar exam normal. Normal gait. Psych: Awake, alert, with orientation to person, place and time. Behavior, mood, and affect are within normal limits. 11:58 Neuro: Awake and alert, GCS 15, oriented to person, place, time, and situation. Cranial nerves II-XII grossly intact. Motor strength 5/5 in all extremities. Sensory grossly intact. Cerebellar exam normal. Normal gait. 11:58 Back: pain, that is moderate, of the right low back, ROM is painful, with flexion, normal spinal alignment noted, CVA tenderness, is absent, vertebral tenderness, is not appreciated, muscle spasm, is appreciated in the right low back. Vital Signs: 11:42 Weight 63.05 kg; Height 5 ft. 5 in. (165.10 cm); Pain 2/10; sv 11:48 BP 103 / 58; Pulse 58; Resp 16; Temp 98.3; Pulse Ox 94% on R/A; Weight 63.05 kg; Height aj1 5 ft. 5 in. (165.10 cm) (R); Pain 2/10; 11:48 Body Mass Index 23.13 (63.05 kg, 165.10 cm) aj1 MDM: 11:47 Patient medically screened. snw 12:38 Data reviewed: vital signs, nurses notes. Data interpreted: Pulse oximetry: on room air snw is 94 %. Interpretation: acceptable. Counseling: I had a detailed discussion with the patient and/or guardian regarding: the historical points, exam findings, and any diagnostic results supporting the discharge/admit diagnosis, radiology results, the need for outpatient follow up, to return to the emergency department if symptoms worsen or persist or if there are any questions or concerns that arise at home. Special discussion: Based on the history and exam findings, there is no indication for further emergent testing or inpatient evaluation. I discussed with the patient/guardian the need to see the back specialist for further evaluation of the symptoms. I discussed with the patient/guardian the need to see the primary care provider for further evaluation of the symptoms. 10/19 11:56 Order name: Lumbar Spine (3 Views) XRAY; Complete Time: 12:54 snw Administered Medications: 12:03 Drug: TORadol 60 mg Route: IM; Site: left gluteus; aj1 12:56 Follow up: Response: No adverse reaction aj1 Disposition: 17:13 Co-signature as Attending Physician, Merritt Kulkarni MD. rn Disposition: 10/19/17 12:36 Discharged to Home. Impression: Lumbago with sciatica, right side. - Condition is Stable. - Discharge Instructions: Back Pain, Adult, Sciatica, Back Exercises, [id number], Heat Therapy. - Prescriptions for Diclofenac Sodium 75 mg Oral Tablet Sustained Release - take 1 tablet by ORAL route 2 times per day; 30 tablet. orphenadrine citrate 100 mg Oral Tablet Sustained Release - take 1 tablet by ORAL route 2 times per day As needed; 20 tablet. - Medication Reconciliation Form, Thank You Letter, Antibiotic Education, Prescription Opioid Use form. - Follow up: Private Physician; When: 2 - 3 days; Reason: Recheck today's complaints, Continuance of care, Re-evaluation by your physician. Follow up: Emergency Department; When: As needed; Reason: Worsening of condition. Signatures: Dispatcher [employer] EDDeb Kim RN RN aj1 Rissa Patel RN RN sv Shani Garza, UTILITY TECH-C UTILITY TECH-Csnw Merritt Kulkarni MD MD journeyman apprentice electricians: (The following items were deleted from the chart) 11:54 11:42 Allergies: Neurontin; sv aj1 13:05 12:36 10/19/2017 12:36 Discharged to Home. Impression: Lumbago with sciatica, right aj1 side. Condition is Stable. Forms are Medication Reconciliation Form, Thank You Letter, Antibiotic Education, Prescription Opioid Use. Follow up: Private Physician; When: 2 - 3 days; Reason: Recheck today's complaints, Continuance of care, Re-evaluation by your physician. Follow up: Emergency Department; When: As needed; Reason: Worsening of condition. snw
--- NOTE | 2017-10-19 12:37 | ER ---
Nurse's Notes [facility] Name: Carmen Mandel Age: 62 yrs Sex: Female : 1955 Arrival Date: 10/19/2017 Time: 11:41 Bed 17 Private MD: Diagnosis: Lumbago with sciatica, right side Presentation: 10/19 11:37 Presenting complaint: EMS states: right low back pain x 2 days. numbness to tight sv thigh. Muscle relaxer taken about an hour ago. BP 108/65 HR 64 RR 16 98% RA. Transition of care: patient was not received from another setting of care. Onset of symptoms was October 17, 2017. Care prior to arrival: None. 11:37 Method Of Arrival: EMS: [facility] sv 11:37 Acuity: CHET 4 sv 11:48 Risk Assessment: Do you want to hurt yourself or someone else? Patient reports no aj1 desire to harm self or others. Initial Sepsis Screen: Does the patient meet any 2 criteria? No. Patient's initial sepsis screen is negative. Does the patient have a suspected source of infection? No. Patient's initial sepsis screen is negative. Triage Assessment: 11:48 General: Appears in no apparent distress. uncomfortable, Behavior is calm, cooperative, aj1 appropriate for age. Pain: Complains of pain in right low back. Historical: - Allergies: 11:54 Neurontin; aj1 - Home Meds: 11:54 [place] Thyroid 90 mg Oral tab daily [Active]; citalopram 40 mg tab 1 tab once daily aj1 [Active]; mirtazapine 30 mg Oral tab nightly [Active]; Pravachol 40 mg Oral tab nightly [Active]; - PMHx: 11:54 Depression; Hyperlipidemia; aj1 - Immunization history:: Flu vaccine status is unknown. - Social history:: Smoking status: Patient uses tobacco products, smokes one pack cigarettes per day. - Ebola Screening: : Patient denies travel to an Ebola-affected area in the 21 days before illness onset. Screenin:54 Abuse screen: Denies threats or abuse. Denies injuries from another. Nutritional aj1 screening: No deficits noted. Tuberculosis screening: No symptoms or risk factors identified. 12:57 Fall Risk None identified. aj1 Assessment: 11:51 General: Appears in no apparent distress. uncomfortable, Behavior is calm, cooperative, aj1 appropriate for age. Pain: Complains of pain in right low back Pain radiates to right leg Pain currently is 2 out of 10 on a pain scale. at worst was 10 out of 10 on a pain scale. Quality of pain is described as "severe" unable to describe pain further Is continuous, Alleviated by rest, Aggravated by repositioning. Neuro: Level of Consciousness is awake, alert, obeys commands, Oriented to person, place, time, situation, Speech is normal, Facial symmetry appears normal. Cardiovascular: Patient's skin is warm and dry. Respiratory: Airway is patent Respiratory effort is even, unlabored, Respiratory pattern is regular, symmetrical. GI: No signs and/or symptoms were reported involving the gastrointestinal system. : No signs and/or symptoms were reported regarding the genitourinary system. EENT: No signs and/or symptoms were reported regarding the EENT system. Derm: No signs and/or symptoms reported regarding the dermatologic system. Skin is pink, warm \\T\\ dry. normal. Musculoskeletal: Range of motion: intact in all extremities. 12:53 Reassessment: Discharge pending PRODUCT ENGINEERING MANAGER talking to patient regarding results. aj1 12:54 Reassessment: Varinder Garza NP at bedside. aj1 Vital Signs: 11:42 Weight 63.05 kg; Height 5 ft. 5 in. (165.10 cm); Pain 2/10; sv 11:48 BP 103 / 58; Pulse 58; Resp 16; Temp 98.3; Pulse Ox 94% on R/A; Weight 63.05 kg; Height aj1 5 ft. 5 in. (165.10 cm) (R); Pain 2/10; 11:48 Body Mass Index 23.13 (63.05 kg, 165.10 cm) aj1 ED Course: 11:41 Patient arrived in ED. sv 11:42 Triage completed. sv 11:47 Shani Garza FNP-C is PHCP. snw 11:47 Merritt Kulkarni MD is Attending Physician. snw 11:48 Deb De, BRIDGETT is Primary Nurse. aj1 11:54 Patient has correct armband on for positive identification. Bed in low position. Call aj1 light in reach. Side rails up X 1. 11:54 Arm band placed on. aj1 11:54 No provider procedures requiring assistance completed. aj1 12:16 Lumbar Spine (3 Views) XRAY In Process Unspecified. EDMS 12:57 Patient did not have IV access during this emergency room visit. aj1 Administered Medications: 12:03 Drug: TORadol 60 mg Route: IM; Site: left gluteus; aj1 12:56 Follow up: Response: No adverse reaction aj1 Outcome: 12:36 Discharge ordered by . snw 12:57 Discharged to home via wheelchair. aj1 12:57 Condition: good 12:57 Discharge instructions given to patient, Instructed on discharge instructions, follow up and referral plans. medication usage, Demonstrated understanding of instructions, follow-up care, medications, Prescriptions given X 2. 13:05 Patient left the ED. aj1 Signatures: Dispatcher [employer] Deb Jones RN RN aj1 Rissa Patel RN RN sv Shani Garza, ASSOCIATE SALES MANAGER-C ASSOCIATE SALES MANAGER-Csnw Corrections: (The following items were deleted from the chart) 11:54 11:42 Allergies: Neurontin; sv aj1
--- NOTE | 2017-10-19 12:45 | RAD REPORT ---
EXAM DESCRIPTION: RAD - Lumbar Spine 3 Views - 10/19/2017 12:17 pm CLINICAL HISTORY: Back pain FINDINGS: The alignment of the lumbar spine is satisfactory. No fracture or dislocation is seen. Postsurgical changes involve L5-S1. No significant change since 2013
== END 2017-10-19 13:05 | disposition home or self-care (01) ==
LOC: ER 11:38
DX: M54.41 Lumbago with sciatica, right side (principal); Z88.8 Allergy status to other drugs, medicaments and biological substances; F17.210 Nicotine dependence, cigarettes, uncomplicated; E78.5 Hyperlipidemia, unspecified
CPT/HCPCS: 72100; 96372; 99284